=== PATIENT | female | born 1975 | race Caucasian/White ===

== ENCOUNTER 2020-04-15 19:43 | Emergency (ER) | payer MEDICAID ==
[~2020-04-15] VITALS: Ht 157.5 cm; Wt 64.0 kg
[~2020-04-15 19:43] MED LIST: CETI10TA51 PO; CLON0.1T PO; CYCL10TA26 PO; DICL100G15 TOP; ESTR1TAB19 PO; FLUO20CA39 PO; GABA-532 PO; HYDR-4353 PO; IBUP-1985 PO; MULT-620 PO; OMEP20CA15 PO; PROM25TA14 PO; SENN-25 PO; SUMA100T PO; TRAZ-256 PO; VERA120T19 PO
[2020-04-15 19:59] VITALS: BP 140/90
[2020-04-15 21:18] LABS: URINE AMPHETAMINE SCREEN NEGATIVE (Neg); URINE BARBITUATE SCREEN NEGATIVE (Neg); URINE BENZODIAZEPINES SCREEN NEGATIVE (Neg); URINE CANNABINOID SCREEN POSITIVE (Neg); URINE COCAINE SCREEN NEGATIVE (Neg); URINE METHADONE SCREEN NEGATIVE (Neg); URINE OPIATE SCREEN NEGATIVE (Neg); URINE PHENCYCLIDINE SCREEN NEGATIVE (Neg)
== END 2020-04-15 21:35 | disposition home or self-care (01) ==
LOC: ER 19:45
DX: Z13.9 Encounter for screening, unspecified (principal); Z88.8 Allergy status to other drugs, medicaments and biological substances; Z79.899 Other long term (current) drug therapy
CPT/HCPCS: 80305; 99283

== ENCOUNTER 2021-03-18 15:53 | Emergency (ER) | payer MEDICAID ==
[~2021-03-18] VITALS: Ht 157.5 cm; Wt 62.7 kg
[2021-03-18 16:11] VITALS: BP 135/80
[2021-03-19] MEDS ORDERED: POLY119P2 PO (11:27)
[2021-03-19] MEDS ORDERED: BISA-78 PO (11:27)
== END 2021-03-18 19:57 | disposition left against medical advice (07) ==
LOC: ER 15:54
DX: K59.00 Constipation, unspecified (principal); Z53.21 Procedure and treatment not carried out due to patient leaving prior to being seen by health care provider

== ENCOUNTER 2021-03-19 08:35 | Emergency (ER) | payer MEDICAID ==
[~2021-03-19] VITALS: Ht 157.5 cm; Wt 61.8 kg
[2021-03-19 09:42] VITALS: BP 113/73
[2021-03-19 10:40] LABS: CLARITY,URINE CLEAR (Clear); COLOR,URINE STRAW (Yellow); GLUCOSE, URINE NEGATIVE (Neg); KETONES,URINE NEGATIVE (Neg); LEUKOCYTE ESTERASE ,URINE NEGATIVE (Neg); NITRITES, URINE NEGATIVE (Neg); OCCULT BLOOD,URINE TRACE-INTACT (Neg); PH,URINE 6.5 (4.8-8.0); PROTEIN,URINE NEGATIVE (Neg); UROBILINOGEN,URINE 0.2 E.U/dL (0.2-1.0)
[2021-03-19 10:42] LABS: UA COLLECTION TYPE CLN CATCH MIDSTREAM
[2021-03-19 10:46] LABS: BACTERIA,URINE NONE SEEN /HPF (Neg); RBC,URINE 0-2 /HPF (0-2); SQUAMOUS EPITHELIAL CELL,UR FEW /LPF (FEW); WBC,URINE NONE SEEN /HPF (0-4)
[2021-03-19] MEDS ORDERED: POLY119P2 PO (11:27)
[2021-03-19] MEDS ORDERED: BISA-78 PO (11:27)
== END 2021-03-19 11:29 | disposition home or self-care (01) ==
LOC: ER 08:36
DX: K59.00 Constipation, unspecified (principal); R50.9 Fever, unspecified; R10.84 Generalized abdominal pain; F15.90 Other stimulant use, unspecified, uncomplicated; Z88.8 Allergy status to other drugs, medicaments and biological substances; Z79.899 Other long term (current) drug therapy
CPT/HCPCS: 81001; 99283